=== PATIENT | male | born 1965 | race Caucasian/White ===

== ENCOUNTER 2018-08-21 11:44 | Inpatient (IN) | payer SELFPAY ==
--- NOTE | 2018-08-21 13:51 | HP ---
CIWA Score Nausea/Vomitin Muscle Tremors: 3 Anxiety: 3 Agitation: 2 Paroxysmal Sweats: 2 Orientation: 0-Oriented Tacttile Disturbances: 0-None Auditory Disturbances: 0-None Visual Disturbances: 0-None Headache: 0-None Present CIWA-Ar Total Score: 12 - Admission Criteria OASAS Guidelines: Admission for Medically Managed Detox: Requires at least one of the followin. CIWA greater than 12 2. Seizures within the past 24 hours 3. Delirium tremens within the past 24 hours 4. Hallucinations within the past 24 hours 5. Acute intervention needed for co occurring medical disorder 6. Acute intervention needed for co occurring psychiatric disorder 7. Severe withdrawal that cannot be handled at a lower level of care (continued vomiting, continued diarrhea, abnormal vital signs) requiring intravenous medication and/or fluids 8. Patient presents the following: CIWA greater than 12 Admission Criteria Met: Admission criteria met Admission ROS [facility] Chief Complaint: alcohol detox 53 yo with HTN, DM, high cholesterol, BPH here for the first time. Says he was in the [facility] for alcohol detox. Says after discharge restarted drinking. Has a PCP at [facility] in the [place]. alcohol- drinks- lot of whiskey, no seizures, no DT history denies other drug use. DUR- no recent meds Allergies/Adverse Reactions: Allergies Allergy/AdvReac Type Severity Reaction Status Date / Time No Known Drug Allergies Allergy Verified 07/01/15 21:48 - Ebola screening Have you traveled outside of the country in the last 21 days: No Have you had contact with anyone from an Ebola affected area: No Do you have a fever: No Patient History - Patient Medical History Hx Hypertension: Yes Hx Hypercholesterolemia: Yes Hx Diabetes: Yes Hx Gastrointestinal Disorders: Yes (DIVERTICULITIS) - Patient Surgical History Past Surgical History: Yes Hx Abdominal Surgery: Yes (colostomy, reversed) Hx Orthopedic Surgery: Yes (SUSANNE HIP REPLACEMENT 8 YRS AGO) Anesthesia Reaction: No - PPD History Previous Implant?: Yes PPD to be Administered?: Yes - Smoking Cessation Smoking history: Never smoked Have you smoked in the past 12 months: No Aproximately how many cigarettes per day: 0 Hx Chewing Tobacco Use: No Initiated information on smoking cessation: No - Substance & Tx. History Hx Alcohol Use: Yes Hx Substance Use: Yes Substance Use Type: Alcohol Hx Substance Use Treatment: Yes - Substances abused Alcohol Substance route: Oral Frequency: Daily Amount used: 1 liter Age of first use: 19 Date of last use: 08/21/18 Family Disease History - Family Disease History Family Disease History: Other: Father (used alcohol) Admission Physical Exam BHS - Physical General Appearance: Yes: Within Normal Limits, Anxious HEENTM: Yes: Within Normal Limits Respiratory: Yes: Within Normal Limits, Lungs Clear Neck: Yes: Within Normal Limits, No masses,lesions,Nodules Cardiology: Yes: Within Normal Limits, Regular Rhythm, Regular Rate Abdominal: Yes: Normal Bowel Sounds, Non Tender, Flat, Organomegaly Back: Yes: Within Normal Limits, Normal Inspection Musculoskeletal: Yes: Within Normal Limits Extremities: Yes: Within Normal Limits Neurological: Yes: Within Normal Limits, Fully Oriented, Alert Integumentary: Yes: Within Normal Limits - Diagnostic (1) Alcohol use disorder Current Visit: Yes Status: Acute (2) High cholesterol Current Visit: Yes Status: Acute (3) BPH (benign prostatic hyperplasia) Current Visit: Yes Status: Acute (4) Diabetes mellitus Current Visit: No Status: Acute (5) Hypertension Current Visit: No Status: Acute Breathalyzer - Breathalyzer Breathalyzer: 0.100 Urine Drug Screen - Test Device Lot number: [id number] Expiration date: 04/26/20 - Control Is test valid?: Yes - Results Drug screen NEGATIVE: No Inpatient Rehab Admission - Rehab Decision to Admit Inpatient rehab admission?: No
[2018-08-21] MEDS ORDERED: MENTHOL/PHENOL 1 EACH UD MM PRN (13:59)
[2018-08-21] MEDS ORDERED: chlordiazePOXIDE HCL 25 MG CAPSULE PO PRN (13:59)
[2018-08-21] MEDS ORDERED: IBUPROFEN 400 MG TABLET (FP) PO PRN (13:59)
[2018-08-21] MEDS ORDERED: METHOCARBAMOL 500 MG TABLET PO PRN (13:59)
[2018-08-21] MEDS ORDERED: BISMUTH SUBSALICYLATE 262 MG/15 ML BTL PO PRN (13:59)
[2018-08-21] MEDS ORDERED: MAG HYDROX/AL HYDROX/SIMETH 30 ML UNIT-DOSE CUP PO PRN (13:59)
[2018-08-21] MEDS ORDERED: ACETAMINOPHEN 325 MG TABLET (FP) PO PRN ×2 (13:59)
[2018-08-21] MEDS ORDERED: MAGNESIUM HYDROX 2400MG/30ML ORAL SUSPENSION 30 ML CUP PO PRN (13:59)
[2018-08-21] MEDS ORDERED: MAGNESIUM CITRATE 300 ML BOTTLE PO PRN (13:59)
[2018-08-21 14:25] VITALS: BMI 27.1
[2018-08-21] MEDS ORDERED: TRIMETHOBENZAMIDE HCL 200MG/2ML INJ IM PRN (14:37)
[2018-08-21] MEDS ORDERED: ONDANSETRON *ODT* 4 MG TABLET SL PRN (14:37)
[2018-08-21] MEDS ORDERED: chlordiazePOXIDE HCL 25 MG CAPSULE PO ONE (14:50)
--- NOTE | 2018-08-21 14:50 | EKG ---
Test Reason : Blood Pressure : / mmHG Vent. Rate : 103 BPM Atrial Rate : 103 BPM P-R Int : 156 ms QRS Dur : 090 ms QT Int : 358 ms P-R-T Axes : 008 003 026 degrees QTc Int : 468 ms SINUS TACHYCARDIA CANNOT RULE OUT INFERIOR INFARCT , AGE UNDETERMINED ABNORMAL ECG WHEN COMPARED WITH ECG OF 01-JUL-2015 21:59, NO SIGNIFICANT CHANGE WAS FOUND Confirmed by Oral Buckner MD ([id number]) on 08/21/2018 2:50:14 PM Referred By: Confirmed By:Oral Buckner MD
[2018-08-21] MEDS: TAMSULOSIN HCL 0.4 MG CAP PO SCH (15:18)
[2018-08-21] MEDS: LOSARTAN POTASSIUM 50 MG TABLET (FP) PO SCH (15:18)
[2018-08-21 17:13] LABS: ALBUMIN 3.9 g/dl (3.4-5.0); BILIRUBIN,TOTAL 0.3 mg/dL (0.2-1); BLOOD UREA NITROGEN 14.9 mg/dL (7-18); CALCIUM 8.5 mg/dL (8.5-10.1); CREATININE 0.9 mg/dL (0.55-1.3); HEMATOCRIT 35.7 % (35.4-49); HEMOGLOBIN 11.7 GM/dL (11.7-16.9); MCH 30.2 pg (25.7-33.7); MCHC 32.9 g/dl (32.0-35.9); MEAN CELL VOLUME 91.9 fl (80-96); MEAN PLT VOLUME 9.1 fl (7.5-11.1); PLATELET COUNT 219 K/MM3 (134-434); POTASSIUM 4.2 mmol/L (3.5-5.1); RBC 3.88 M/mm3 (4.00-5.60); RDW 13.4 % (11.9-15.9); TOT PROT 7.3 g/dl (6.4-8.2); WHITE BLOOD COUNT 4.7 K/mm3 (4.0-10.0)
[2018-08-21] MEDS: chlordiazePOXIDE HCL 25 MG CAPSULE PO SCH ×2 (17:16→22:35)
[2018-08-21] MEDS: ATENOLOL 25 MG TABLET (FP) PO SCH (17:20)
[2018-08-21] MEDS: sitaGLIPtin PHOSPHATE 50 MG TABLET PO SCH (17:25)
[2018-08-21] MEDS: metFORMIN HCL 500 MG TABLET (FP) PO SCH (17:25)
[2018-08-21 18:40] LABS: URINE APPEARANCE CLEAR; URINE BILIRUBIN NEGATIVE (NEGATIVE); URINE COLOR YELLOW; URINE GLUCOSE (UA) 2+ (NEGATIVE); URINE KETONE TRACE (NEGATIVE); URINE LEUK ESTERASE NEGATIVE (NEGATIVE); URINE NITRITE NEGATIVE (NEGATIVE); URINE PROTEIN NEGATIVE (NEGATIVE); URINE UROBILINOGEN 0.2 mg/dL (0.2-1.0)
[2018-08-21] MEDS ORDERED: PATIENT'S OWN MEDICATION (NON-FORMULARY) (Sitagliptin Phos/Metformin Hcl [Janumet 50-1,000 PO SCH (22:00)
[2018-08-21] MEDS: THIAMINE HCL 100 MG TABLET (FP) PO SCH (22:35)
[2018-08-21] MEDS: MELATONIN 5 MG TABLETS PO PRN (22:36)
[2018-08-22] MEDS: sitaGLIPtin PHOSPHATE 50 MG TABLET PO SCH ×2 (06:25→17:26)
[2018-08-22] MEDS: metFORMIN HCL 500 MG TABLET (FP) PO SCH ×2 (06:25→17:26)
[2018-08-22] MEDS: chlordiazePOXIDE HCL 25 MG CAPSULE PO SCH ×4 (06:26→22:38)
[2018-08-22] MEDS: LOSARTAN POTASSIUM 50 MG TABLET (FP) PO SCH (10:09)
[2018-08-22] MEDS: ATENOLOL 25 MG TABLET (FP) PO SCH (10:09)
[2018-08-22] MEDS: ASPIRIN 81 MG CHEWABLE TABLETS PO SCH (10:09)
[2018-08-22] MEDS: TAMSULOSIN HCL 0.4 MG CAP PO SCH (10:09)
[2018-08-22] MEDS: PRENATAL VITAMINS W/ FOLIC ACID TABLET (FP) PO SCH (10:09)
--- NOTE | 2018-08-22 14:50 | PN ---
S CIWA - CIWA Score Nausea/Vomitin-Mild Nausea/No Vomiting Muscle Tremors: 1-None Visible, but [place] Anxiety: 1-Mildly Anxious Agitation: 1-Slight > Activity Paroxysmal Sweats: No Perspiration Orientation: 0-Oriented Tacttile Disturbances: 0-None Auditory Disturbances: 0-None Visual Disturbances: 0-None Headache: 1-Very Mild CIWA-Ar Total Score: 5 BHS Progress Note (SOAP) Subjective: pt without complaints O: Vital Signs - 24 hr 08/21/18 08/21/18 08/22/18 16:41 20:44 00:30 Temperature 97.2 F L 97.5 F L Pulse Rate 106 H 98 H Respiratory 18 18 18 Rate Blood Pressure 128/84 131/78 08/22/18 08/22/18 08/22/18 03:30 07:04 10:00 Temperature 97 F L 98.8 F Pulse Rate 90 100 H Respiratory 18 18 16 Rate Blood Pressure 135/79 133/82 08/22/18 14:05 Temperature 98.1 F Pulse Rate 93 H Respiratory 17 Rate Blood Pressure 114/73 Laboratory Tests 08/21/18 08/21/18 08/21/18 13:21 14:05 14:05 WBC 4.7 RBC 3.88 L Hgb 11.7 Hct 35.7 MCV 91.9 MCH 30.2 MCHC 32.9 RDW 13.4 D Plt Count 219 MPV 9.1 Sodium 134 L Potassium 4.2 Chloride 93 L Carbon Dioxide 26 Anion Gap 14 BUN 14.9 Creatinine 0.9 Est GFR (CKD-EPI)AfAm 111.83 Est GFR (CKD-EPI)NonAf 96.49 POC Glucometer 108 Random Glucose 135 H Calcium 8.5 Total Bilirubin 0.3 AST 80 H ALT 89 H Alkaline Phosphatase 71 Total Protein 7.3 Albumin 3.9 Urine Color Urine Appearance Urine pH Ur Specific [place] Urine Protein Urine Glucose (UA) Urine Ketones Urine Blood Urine Nitrite Urine Bilirubin Urine Urobilinogen Ur Leukocyte Esterase RPR Titer 08/21/18 08/21/18 08/22/18 14:05 14:05 06:25 WBC RBC Hgb Hct MCV MCH MCHC RDW Plt Count MPV Sodium Potassium Chloride Carbon Dioxide Anion Gap BUN Creatinine Est GFR (CKD-EPI)AfAm Est GFR (CKD-EPI)NonAf POC Glucometer 179 Random Glucose Calcium Total Bilirubin AST ALT Alkaline Phosphatase Total Protein Albumin Urine Color Yellow Urine Appearance Clear Urine pH 5.0 Ur Specific [place] 1.017 Urine Protein Negative Urine Glucose (UA) 2+ H Urine Ketones Trace H Urine Blood Negative Urine Nitrite Negative Urine Bilirubin Negative Urine Urobilinogen 0.2 Ur Leukocyte Esterase Negative RPR Titer Nonreactive mild increase in liver enzymes a/p: AUD- continue alcohol detox protocol, pt doing well
[2018-08-22] MEDS: MELATONIN 5 MG TABLETS PO PRN (22:38)
[2018-08-22] MEDS: THIAMINE HCL 100 MG TABLET (FP) PO SCH (22:38)
[2018-08-23] MEDS: chlordiazePOXIDE HCL 25 MG CAPSULE PO SCH ×2 (05:36→11:06)
[2018-08-23] MEDS: sitaGLIPtin PHOSPHATE 50 MG TABLET PO SCH ×2 (06:11→17:41)
[2018-08-23] MEDS: metFORMIN HCL 500 MG TABLET (FP) PO SCH ×2 (06:11→17:41)
--- NOTE | 2018-08-23 11:03 | PN ---
S CIWA - CIWA Score Nausea/Vomitin Muscle Tremors: 2 Anxiety: 2 Agitation: 2 Paroxysmal Sweats: 1-Minimal Palms Moist Orientation: 0-Oriented Tacttile Disturbances: 1-Very Mild Itch/Numbness Auditory Disturbances: 1-Very Mild Visual Disturbances: 0-None Headache: 2-Mild CIWA-Ar Total Score: 13 BHS Progress Note (SOAP) Subjective: alert,irritable,anxious,interrupted sleep,tremor Objective: 08/23/18 11:02 Vital Signs Temperature 98.2 F 08/23/18 09:16 Pulse Rate 111 H 08/23/18 09:16 Respiratory Rate 18 08/23/18 09:16 Blood Pressure 124/91 08/23/18 09:16 O2 Sat by Pulse Oximetry (%) 08/23/18 11:02 Laboratory Last Values WBC 4.7 K/mm3 (4.0-10.0) 08/21/18 14:05 RBC 3.88 M/mm3 (4.00-5.60) L 08/21/18 14:05 Hgb 11.7 GM/dL (11.7-16.9) 08/21/18 14:05 Hct 35.7 % (35.4-49) 08/21/18 14:05 MCV 91.9 fl (80-96) 08/21/18 14:05 MCH 30.2 pg (25.7-33.7) 08/21/18 14:05 MCHC 32.9 g/dl (32.0-35.9) 08/21/18 14:05 RDW 13.4 % (11.9-15.9) D 08/21/18 14:05 Plt Count 219 K/MM3 (134-434) 08/21/18 14:05 MPV 9.1 fl (7.5-11.1) 08/21/18 14:05 Sodium 134 mmol/L (136-145) L 08/21/18 14:05 Potassium 4.2 mmol/L (3.5-5.1) 08/21/18 14:05 Chloride 93 mmol/L (98-107) L 08/21/18 14:05 Carbon Dioxide 26 mmol/L (21-32) 08/21/18 14:05 Anion Gap 14 MMOL/L (8-16) 08/21/18 14:05 BUN 14.9 mg/dL (7-18) 08/21/18 14:05 Creatinine 0.9 mg/dL (0.55-1.3) 08/21/18 14:05 Est GFR (CKD-EPI)AfAm 111.83 08/21/18 14:05 Est GFR (CKD-EPI)NonAf 96.49 08/21/18 14:05 POC Glucometer 161 UNITS (80-120) 08/23/18 05:36 Random Glucose 135 mg/dL (74-106) H 08/21/18 14:05 Calcium 8.5 mg/dL (8.5-10.1) 08/21/18 14:05 Total Bilirubin 0.3 mg/dL (0.2-1) 08/21/18 14:05 AST 80 U/L (15-37) H 08/21/18 14:05 ALT 89 U/L (13-61) H 08/21/18 14:05 Alkaline Phosphatase 71 U/L (45-117) 08/21/18 14:05 Total Protein 7.3 g/dl (6.4-8.2) 08/21/18 14:05 Albumin 3.9 g/dl (3.4-5.0) 08/21/18 14:05 Urine Color Yellow 08/21/18 14:05 Urine Appearance Clear 08/21/18 14:05 Urine pH 5.0 (5.0-8.0) 08/21/18 14:05 Ur Specific [place] 1.017 (1.010-1.035) 08/21/18 14:05 Urine Protein Negative (NEGATIVE) 08/21/18 14:05 Urine Glucose (UA) 2+ (NEGATIVE) H 08/21/18 14:05 Urine Ketones Trace (NEGATIVE) H 08/21/18 14:05 Urine Blood Negative (NEGATIVE) 08/21/18 14:05 Urine Nitrite Negative (NEGATIVE) 08/21/18 14:05 Urine Bilirubin Negative (NEGATIVE) 08/21/18 14:05 Urine Urobilinogen 0.2 mg/dL (0.2-1.0) 08/21/18 14:05 Ur Leukocyte Esterase Negative (NEGATIVE) 08/21/18 14:05 RPR Titer Nonreactive (NONREACTIVE) 08/21/18 14:05 Assessment: 08/23/18 11:03 withdrawal symptom Plan: continue detox,bgm monitoring
[2018-08-23] MEDS: PRENATAL VITAMINS W/ FOLIC ACID TABLET (FP) PO SCH (11:06)
[2018-08-23] MEDS: ASPIRIN 81 MG CHEWABLE TABLETS PO SCH (11:06)
[2018-08-23] MEDS: LOSARTAN POTASSIUM 50 MG TABLET (FP) PO SCH (11:06)
[2018-08-23] MEDS: ATENOLOL 25 MG TABLET (FP) PO SCH (11:06)
[2018-08-23] MEDS: TAMSULOSIN HCL 0.4 MG CAP PO SCH (11:06)
[2018-08-23] MEDS ORDERED: chlordiazePOXIDE HCL 10 MG CAPSULE PO PRN (17:00)
[2018-08-23] MEDS: chlordiazePOXIDE HCL 10 MG CAPSULE PO SCH ×2 (17:41→22:18)
[2018-08-23] MEDS: hydrOXYzine PAMOATE 25 MG CAPSULE (FP) PO PRN (22:17)
[2018-08-23] MEDS: THIAMINE HCL 100 MG TABLET (FP) PO SCH (22:18)
--- NOTE | 2018-08-23 22:41 | PN ---
S Progress Note Note: PATIENT HAS POSITIVE PPD. Vital Signs Temperature 98.2 F 08/23/18 21:25 Pulse Rate 106 H 08/23/18 21:25 Respiratory Rate 18 08/23/18 21:25 Blood Pressure 133/87 08/23/18 21:25 O2 Sat by Pulse Oximetry (%) ACTION: Chest x-ray ordered
[2018-08-24] MEDS: metFORMIN HCL 500 MG TABLET (FP) PO SCH ×2 (06:26→16:58)
[2018-08-24] MEDS: chlordiazePOXIDE HCL 10 MG CAPSULE PO SCH ×3 (06:27→17:02)
--- NOTE | 2018-08-24 09:34 | PN ---
[facility] CIWA - CIWA Score Nausea/Vomitin-No Nausea/No Vomiting Muscle Tremors: 1-None Visible, but [place] Anxiety: 1-Mildly Anxious Agitation: 0-Normal Activity Paroxysmal Sweats: 1-Minimal Palms Moist Orientation: 0-Oriented Tacttile Disturbances: 1-Very Mild Itch/Numbness Auditory Disturbances: 0-None Visual Disturbances: 0-None Headache: 0-None Present CIWA-Ar Total Score: 4 S Progress Note (SOAP) Subjective: c/o of interrupted sleep, chills, sweats Objective: 08/24/18 11:48 Vital Signs Temperature 97.9 F 08/24/18 09:15 Pulse Rate 101 H 08/24/18 09:15 Respiratory Rate 18 08/24/18 09:15 Blood Pressure 130/96 08/24/18 09:15 O2 Sat by Pulse Oximetry (%) Laboratory Last Values WBC 4.7 K/mm3 (4.0-10.0) 08/21/18 14:05 RBC 3.88 M/mm3 (4.00-5.60) L 08/21/18 14:05 Hgb 11.7 GM/dL (11.7-16.9) 08/21/18 14:05 Hct 35.7 % (35.4-49) 08/21/18 14:05 MCV 91.9 fl (80-96) 08/21/18 14:05 MCH 30.2 pg (25.7-33.7) 08/21/18 14:05 MCHC 32.9 g/dl (32.0-35.9) 08/21/18 14:05 RDW 13.4 % (11.9-15.9) D 08/21/18 14:05 Plt Count 219 K/MM3 (134-434) 08/21/18 14:05 MPV 9.1 fl (7.5-11.1) 08/21/18 14:05 Sodium 134 mmol/L (136-145) L 08/21/18 14:05 Potassium 4.2 mmol/L (3.5-5.1) 08/21/18 14:05 Chloride 93 mmol/L (98-107) L 08/21/18 14:05 Carbon Dioxide 26 mmol/L (21-32) 08/21/18 14:05 Anion Gap 14 MMOL/L (8-16) 08/21/18 14:05 BUN 14.9 mg/dL (7-18) 08/21/18 14:05 Creatinine 0.9 mg/dL (0.55-1.3) 08/21/18 14:05 Est GFR (CKD-EPI)AfAm 111.83 08/21/18 14:05 Est GFR (CKD-EPI)NonAf 96.49 08/21/18 14:05 POC Glucometer 226 UNITS (80-120) 08/24/18 06: Random Glucose 135 mg/dL (74-106) H 08/21/18 14:05 Calcium 8.5 mg/dL (8.5-10.1) 08/21/18 14:05 Total Bilirubin 0.3 mg/dL (0.2-1) 08/21/18 14:05 AST 80 U/L (15-37) H 08/21/18 14:05 ALT 89 U/L (13-61) H 08/21/18 14:05 Alkaline Phosphatase 71 U/L (45-117) 08/21/18 14:05 Total Protein 7.3 g/dl (6.4-8.2) 08/21/18 14:05 Albumin 3.9 g/dl (3.4-5.0) 08/21/18 14:05 Urine Color Yellow 08/21/18 14:05 Urine Appearance Clear 08/21/18 14:05 Urine pH 5.0 (5.0-8.0) 08/21/18 14:05 Ur Specific [place] 1.017 (1.010-1.035) 08/21/18 14:05 Urine Protein Negative (NEGATIVE) 08/21/18 14:05 Urine Glucose (UA) 2+ (NEGATIVE) H 08/21/18 14:05 Urine Ketones Trace (NEGATIVE) H 08/21/18 14:05 Urine Blood Negative (NEGATIVE) 08/21/18 14:05 Urine Nitrite Negative (NEGATIVE) 08/21/18 14:05 Urine Bilirubin Negative (NEGATIVE) 08/21/18 14:05 Urine Urobilinogen 0.2 mg/dL (0.2-1.0) 08/21/18 14:05 Ur Leukocyte Esterase Negative (NEGATIVE) 08/21/18 14:05 RPR Titer Nonreactive (NONREACTIVE) 08/21/18 14:05 labs reviewed Assessment: 08/24/18 11:52 Patient Aox3 no acute distress, ambulating in the unit withdrawal sx Plan: increase PO fluids continue detox continue to monitor
[2018-08-24] MEDS: PRENATAL VITAMINS W/ FOLIC ACID TABLET (FP) PO SCH (10:34)
[2018-08-24] MEDS: LOSARTAN POTASSIUM 50 MG TABLET (FP) PO SCH (10:34)
[2018-08-24] MEDS: TAMSULOSIN HCL 0.4 MG CAP PO SCH (10:34)
[2018-08-24] MEDS: ASPIRIN 81 MG CHEWABLE TABLETS PO SCH (10:35)
[2018-08-24] MEDS: ATENOLOL 25 MG TABLET (FP) PO SCH (10:35)
[2018-08-24] MEDS: sitaGLIPtin PHOSPHATE 50 MG TABLET PO SCH (17:02)
[2018-08-24] MEDS: THIAMINE HCL 100 MG TABLET (FP) PO SCH (22:15)
[2018-08-24] MEDS: MELATONIN 5 MG TABLETS PO PRN (22:15)
[2018-08-24] MEDS: hydrOXYzine PAMOATE 25 MG CAPSULE (FP) PO PRN (22:15)
[2018-08-25] MEDS: sitaGLIPtin PHOSPHATE 50 MG TABLET PO SCH ×2 (02:28→06:10)
[2018-08-25] MEDS: chlordiazePOXIDE HCL 10 MG CAPSULE PO SCH (06:08)
[2018-08-25] MEDS: metFORMIN HCL 500 MG TABLET (FP) PO SCH (06:08)
[2018-08-25 06:52] VITALS: BP 140/80; PULSE 77; TEMP 97.9
[2018-08-25] MEDS: ASPIRIN 81 MG CHEWABLE TABLETS PO SCH (09:44)
[2018-08-25] MEDS: PRENATAL VITAMINS W/ FOLIC ACID TABLET (FP) PO SCH (09:44)
[2018-08-25] MEDS: ATENOLOL 25 MG TABLET (FP) PO SCH (09:45)
[2018-08-25] MEDS: LOSARTAN POTASSIUM 50 MG TABLET (FP) PO SCH (09:45)
[2018-08-25] MEDS: TAMSULOSIN HCL 0.4 MG CAP PO SCH (09:45)
--- NOTE | 2018-08-25 12:46 | DS ---
[facility] Detox Discharge Summary Admission Date: 08/21/18 Discharge Date: 08/25/18 - History Present History: Alcohol Dependence Additional Comments: Pt is medically cleared and is discharged today. Pt has completed his detox protocol. 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 Pt is encouraged to follow-up with outpatient CD program and also to follow-up with his PMD. Pt is AOX3 and in no respiratory distress. Pertinent Past History: H/O HTN, dyslipidemia, DM, BPH,and alcohol use disorder. - Physical Exam Results Vital Signs: Vital Signs Temperature 97.9 F 08/25/18 06:00 Pulse Rate 77 08/25/18 06:00 Respiratory Rate 18 08/25/18 06:00 Blood Pressure 140/80 08/25/18 06:00 O2 Sat by Pulse Oximetry (%) Vital Signs 08/25/18 06:00 Temperature 97.9 F Pulse Rate 77 Respiratory 18 Rate Blood Pressure 140/80 Lab Results WBC 4.7 K/mm3 (4.0-10.0) 08/21/18 14:05 RBC 3.88 M/mm3 (4.00-5.60) L 08/21/18 14:05 Hgb 11.7 GM/dL (11.7-16.9) 08/21/18 14:05 Hct 35.7 % (35.4-49) 08/21/18 14:05 MCV 91.9 fl (80-96) 08/21/18 14:05 MCHC 32.9 g/dl (32.0-35.9) 08/21/18 14:05 RDW 13.4 % (11.9-15.9) D 08/21/18 14:05 Plt Count 219 K/MM3 (134-434) 08/21/18 14:05 Sodium 134 mmol/L (136-145) L 08/21/18 14:05 Potassium 4.2 mmol/L (3.5-5.1) 08/21/18 14:05 Chloride 93 mmol/L (98-107) L 08/21/18 14:05 Carbon Dioxide 26 mmol/L (21-32) 08/21/18 14:05 Anion Gap 14 MMOL/L (8-16) 08/21/18 14:05 BUN 14.9 mg/dL (7-18) 08/21/18 14:05 Creatinine 0.9 mg/dL (0.55-1.3) 08/21/18 14:05 Random Glucose 135 mg/dL (74-106) H 08/21/18 14:05 Calcium 8.5 mg/dL (8.5-10.1) 08/21/18 14:05 Labs noted. Pertinent Admission Physical Exam Findings: withdrawal symptoms. - Treatment Hospital Course: Detox Protocol Followed, Detoxed Safely, Responded well, Discharged Condition Good - Medication Discharge Medications: Ambulatory Orders Losartan Potassium [Cozaar] 50 mg PO DAILY 12/20/13 Sitagliptin Phos/Metformin HCl [Janumet 50-1,000 mg Tablet] 1 tab PO BID Aspirin [ASA -] 81 mg PO DAILY 05/08/15 Atenolol [Tenormin -] 25 mg PO DAILY 05/11/15 Tamsulosin HCl [Flomax] 0.4 mg PO DAILY 08/21/18 - Diagnosis (1) Alcohol use disorder Status: Acute (2) BPH (benign prostatic hyperplasia) Status: Chronic (3) Diabetes mellitus Status: Chronic Qualifiers: Diabetes mellitus type: type 2 (4) High cholesterol Status: Chronic (5) Hypertension Status: Chronic - AMA Did Patient Leave Against Medical Advice: No
== END 2018-08-25 09:50 | disposition home or self-care (01) | DRG 775 ==
LOC: YASAS 11:44 → Y6N 14:25
PROVIDERS: ADMIT Surgery; ATTEND Surgery
PROC: HZ2ZZZZ Detoxification Services for Substance Abuse Treatment (ICD-10-PCS; principal; 2018-08-21)
DX: F10.230 Alcohol dependence with withdrawal, uncomplicated (principal); I10 Essential (primary) hypertension; E11.9 Type 2 diabetes mellitus without complications; E78.5 Hyperlipidemia, unspecified; N40.0 Benign prostatic hyperplasia without lower urinary tract symptoms; R76.11 Nonspecific reaction to tuberculin skin test without active tuberculosis; R94.5 Abnormal results of liver function studies
CPT/HCPCS: 36415; 71046-TC-FY; 80053; 81003; 82962; 85027; 86593; 93005; 93010; Q0162

== ENCOUNTER 2020-02-13 22:40 | Emergency (ER) | payer OTHER ==
[2020-02-13 22:58] VITALS: BMI 31.6
[2020-02-13] MEDS ORDERED: LACTATED RINGERS SOLUTION 1000 ML INFUS.BAG IV ONE (23:19)
[2020-02-13 23:42] LABS: BASO % 0.3 % (0-2.0); EOS % 2.1 % (0-4.5); HEMATOCRIT 32.9 % (35.4-49); HEMOGLOBIN 10.9 GM/dL (11.7-16.9); MCH 29.8 pg (25.7-33.7); MEAN CELL VOLUME 90.1 fl (80-96); MEAN PLT VOLUME 9.3 fl (7.5-11.1); NEUT % 72.6 % (42.8-82.8); PLATELET COUNT 277 K/MM3 (134-434); RBC 3.65 M/mm3 (4.00-5.60); RDW 12.7 % (11.9-15.9); WHITE BLOOD COUNT 10.1 K/mm3 (4.0-10.0)
[2020-02-13 23:48] LABS: INR 1.08 (0.83-1.09); PROTHROMBIN TIME (PATIENT) 13.2 SEC (9.7-13.0)
[2020-02-13 23:59] LABS: POTASSIUM 4.5 mmol/L (3.5-5.1)
[2020-02-14 00:01] LABS: CALCIUM 9.2 mg/dL (8.5-10.1)
[2020-02-14 00:02] LABS: ALBUMIN 3.7 g/dl (3.4-5.0)
[2020-02-14 00:05] LABS: CREATININE 0.9 mg/dL (0.55-1.3)
[2020-02-14 00:06] LABS: BILIRUBIN,TOTAL 0.3 mg/dL (0.2-1)
[2020-02-14] MEDS ORDERED: LACTATED RINGERS SOLUTION 1000 ML INFUS.BAG IV ONE (03:45)
[2020-02-14 06:19] VITALS: BP 154/87; PULSE 94; TEMP 98.4
[2020-02-14] MEDS ORDERED: AMOX TR/POT CLAV 875MG/125MG TABLETS (FP) PO ONE (06:25)
[2020-02-14] MEDS ORDERED: AMOX TR/POT CLAV 875MG/125MG TABLETS (FP) ONE (06:32)
== END 2020-02-14 07:09 | disposition home or self-care (01) ==
LOC: JER 22:40
DX: K57.92 Diverticulitis of intestine, part unspecified, without perforation or abscess without bleeding (principal)
CPT/HCPCS: 36415; 74174-TC; 80053; 82272; 83605; 85025; 85610; 86850; 86900; 86901; 93005; 93010; 99285-25

== ENCOUNTER 2020-06-21 08:23 | Inpatient (IN) | payer SELFPAY ==
[2020-06-21] MEDS ORDERED: ONDANSETRON *ODT* 4 MG TABLET SL PRN (13:55)
[2020-06-21] MEDS ORDERED: NICOTINE POLACRILEX 2 MG GUM BUC PRN (13:55)
[2020-06-21] MEDS ORDERED: MENTHOL/PHENOL 1 EACH UD MM PRN (13:55)
[2020-06-21] MEDS ORDERED: METHOCARBAMOL 500 MG TABLET PO PRN (13:55)
[2020-06-21] MEDS ORDERED: IBUPROFEN 400 MG TABLET (FP) PO PRN (13:55)
[2020-06-21] MEDS ORDERED: BISMUTH SUBSALICYLATE 524 MG/30 ML UD PO PRN (13:55)
[2020-06-21] MEDS ORDERED: chlordiazePOXIDE HCL 25 MG CAPSULE PO PRN (13:55)
[2020-06-21] MEDS ORDERED: MAG HYDROX/AL HYDROX/SIMETH 30 ML UNIT-DOSE CUP PO PRN (13:55)
[2020-06-21] MEDS ORDERED: ACETAMINOPHEN 325 MG TABLET (FP) PO PRN ×2 (13:55)
[2020-06-21] MEDS ORDERED: MAGNESIUM HYDROX 2400MG/30ML ORAL SUSPENSION 30 ML CUP PO PRN (13:55)
[2020-06-21] MEDS ORDERED: MAGNESIUM CITRATE 300 ML BOTTLE PO PRN (13:55)
[2020-06-21 14:25] VITALS: BMI 29.5
[2020-06-21] MEDS: hydrOXYzine PAMOATE 25 MG CAPSULE (FP) PO SCH ×3 (15:53→22:28)
[2020-06-21] MEDS: metFORMIN HCL 500 MG TABLET (FP) PO SCH (17:35)
[2020-06-21] MEDS: chlordiazePOXIDE HCL 25 MG CAPSULE PO SCH ×2 (17:36→22:28)
[2020-06-21] MEDS: MELATONIN 5 MG TABLETS PO SCH (22:28)
[2020-06-21] MEDS: ATORVASTATIN CA 40 MG TABLET (FP) PO SCH (22:28)
[2020-06-21] MEDS: THIAMINE HCL 100 MG TABLET (FP) PO SCH (22:28)
[2020-06-22] MEDS: chlordiazePOXIDE HCL 25 MG CAPSULE PO SCH ×4 (05:59→22:26)
[2020-06-22] MEDS: metFORMIN HCL 500 MG TABLET (FP) PO SCH ×2 (05:59→17:49)
[2020-06-22] MEDS: hydrOXYzine PAMOATE 25 MG CAPSULE (FP) PO SCH ×5 (06:00→23:41)
[2020-06-22] MEDS: ASPIRIN 81 MG CHEWABLE TABLETS PO SCH (10:25)
[2020-06-22] MEDS: LOSARTAN POTASSIUM 50 MG TABLET PO SCH (10:25)
[2020-06-22] MEDS: TAMSULOSIN HCL 0.4 MG CAP PO SCH (10:26)
[2020-06-22] MEDS: PRENATAL VITAMINS W/ FOLIC ACID TABLET (FP) PO SCH (10:28)
[2020-06-22] MEDS: ATENOLOL 25 MG TABLET (FP) PO SCH (10:28)
[2020-06-22 10:39] LABS: ALBUMIN 3.4 g/dl (3.4-5.0); BLOOD UREA NITROGEN 8.5 mg/dL (7-18); CALCIUM 9.7 mg/dL (8.5-10.1)
[2020-06-22 10:43] LABS: CREATININE 0.9 mg/dL (0.55-1.3)
[2020-06-22 10:44] LABS: BILIRUBIN,TOTAL 0.4 mg/dL (0.2-1); TOT PROT 6.9 g/dl (6.4-8.2)
[2020-06-22 10:45] LABS: HEMATOCRIT 33.6 % (35.4-49); HEMOGLOBIN 11.4 GM/dL (11.7-16.9); MCH 30.9 pg (25.7-33.7); MEAN CELL VOLUME 90.8 fl (80-96); MEAN PLT VOLUME 8.5 fl (7.5-11.1); PLATELET COUNT 218 K/MM3 (134-434); RDW 14.8 % (11.9-15.9); WHITE BLOOD COUNT 3.5 K/mm3 (4.0-10.0)
[2020-06-22] MEDS: ATORVASTATIN CA 40 MG TABLET (FP) PO SCH (22:26)
[2020-06-22] MEDS: THIAMINE HCL 100 MG TABLET (FP) PO SCH (22:26)
[2020-06-22] MEDS: MELATONIN 5 MG TABLETS PO SCH (22:27)
[2020-06-23] MEDS: hydrOXYzine PAMOATE 25 MG CAPSULE (FP) PO SCH ×5 (05:18→22:15)
[2020-06-23] MEDS: chlordiazePOXIDE HCL 25 MG CAPSULE PO SCH ×4 (05:18→22:14)
[2020-06-23] MEDS: metFORMIN HCL 500 MG TABLET (FP) PO SCH ×2 (06:36→16:47)
[2020-06-23] MEDS: ASPIRIN 81 MG CHEWABLE TABLETS PO SCH (10:15)
[2020-06-23] MEDS: LOSARTAN POTASSIUM 50 MG TABLET PO SCH (10:15)
[2020-06-23] MEDS: PRENATAL VITAMINS W/ FOLIC ACID TABLET (FP) PO SCH (10:15)
[2020-06-23] MEDS: ATENOLOL 25 MG TABLET (FP) PO SCH (10:15)
[2020-06-23] MEDS: TAMSULOSIN HCL 0.4 MG CAP PO SCH (10:15)
[2020-06-23] MEDS: THIAMINE HCL 100 MG TABLET (FP) PO SCH (22:15)
[2020-06-23] MEDS: ATORVASTATIN CA 40 MG TABLET (FP) PO SCH (22:15)
[2020-06-23] MEDS: MELATONIN 5 MG TABLETS PO SCH (22:15)
[2020-06-24] MEDS ORDERED: chlordiazePOXIDE HCL 10 MG CAPSULE PO PRN
[2020-06-24] MEDS: chlordiazePOXIDE HCL 10 MG CAPSULE PO SCH ×4 (05:20→22:19)
[2020-06-24] MEDS: hydrOXYzine PAMOATE 25 MG CAPSULE (FP) PO SCH ×5 (05:22→22:19)
[2020-06-24 06:11] LABS: SARS-CoV-2 NAA Not Detected (Not Detected)
[2020-06-24] MEDS: metFORMIN HCL 500 MG TABLET (FP) PO SCH ×2 (06:40→16:51)
[2020-06-24] MEDS: TAMSULOSIN HCL 0.4 MG CAP PO SCH (10:31)
[2020-06-24] MEDS: ATENOLOL 25 MG TABLET (FP) PO SCH (10:31)
[2020-06-24] MEDS: LOSARTAN POTASSIUM 50 MG TABLET PO SCH (10:31)
[2020-06-24] MEDS: PRENATAL VITAMINS W/ FOLIC ACID TABLET (FP) PO SCH (10:31)
[2020-06-24] MEDS: ASPIRIN 81 MG CHEWABLE TABLETS PO SCH (10:31)
[2020-06-24] MEDS: THIAMINE HCL 100 MG TABLET (FP) PO SCH (22:18)
[2020-06-24] MEDS: ATORVASTATIN CA 40 MG TABLET (FP) PO SCH (22:18)
[2020-06-24] MEDS: MELATONIN 5 MG TABLETS PO SCH (22:20)
[2020-06-24] MEDS: SODIUM CHLORIDE NASAL SPRAY 44 ML BOTTLE NS PRN (22:42)
[2020-06-25] MEDS: chlordiazePOXIDE HCL 10 MG CAPSULE PO SCH ×2 (05:34→17:41)
[2020-06-25] MEDS: hydrOXYzine PAMOATE 25 MG CAPSULE (FP) PO SCH ×5 (05:35→21:49)
[2020-06-25] MEDS: metFORMIN HCL 500 MG TABLET (FP) PO SCH ×2 (07:09→17:40)
[2020-06-25] MEDS: TAMSULOSIN HCL 0.4 MG CAP PO SCH (07:52)
[2020-06-25] MEDS: SODIUM CHLORIDE NASAL SPRAY 44 ML BOTTLE NS PRN (07:54)
[2020-06-25] MEDS: ASPIRIN 81 MG CHEWABLE TABLETS PO SCH (10:15)
[2020-06-25] MEDS: PRENATAL VITAMINS W/ FOLIC ACID TABLET (FP) PO SCH (10:15)
[2020-06-25] MEDS: ATENOLOL 25 MG TABLET (FP) PO SCH (10:15)
[2020-06-25] MEDS: LOSARTAN POTASSIUM 50 MG TABLET PO SCH (10:15)
[2020-06-25] MEDS: THIAMINE HCL 100 MG TABLET (FP) PO SCH (21:49)
[2020-06-25] MEDS: MELATONIN 5 MG TABLETS PO SCH (21:49)
[2020-06-25] MEDS: ATORVASTATIN CA 40 MG TABLET (FP) PO SCH (21:49)
[2020-06-26] MEDS ORDERED: chlordiazePOXIDE HCL 10 MG CAPSULE PO ONE (05:00)
[2020-06-26] MEDS: hydrOXYzine PAMOATE 25 MG CAPSULE (FP) PO SCH (05:23)
[2020-06-26] MEDS: metFORMIN HCL 500 MG TABLET (FP) PO SCH (06:10)
[2020-06-26 08:54] VITALS: BP 147/87; PULSE 103; TEMP 98.3
[2020-06-26] MEDS: ASPIRIN 81 MG CHEWABLE TABLETS PO SCH (09:17)
[2020-06-26] MEDS: ATENOLOL 25 MG TABLET (FP) PO SCH (09:17)
[2020-06-26] MEDS: LOSARTAN POTASSIUM 50 MG TABLET PO SCH (09:17)
[2020-06-26] MEDS: TAMSULOSIN HCL 0.4 MG CAP PO SCH (09:18)
[2020-06-26] MEDS: PRENATAL VITAMINS W/ FOLIC ACID TABLET (FP) PO SCH (09:18)
== END 2020-06-26 09:34 | disposition home or self-care (01) | DRG 775 ==
LOC: YASAS 08:23 → Y6N 14:55
PROVIDERS: ADMIT Allergy & Immunology; ATTEND Allergy & Immunology
PROC: HZ2ZZZZ Detoxification Services for Substance Abuse Treatment (ICD-10-PCS; principal; 2020-06-21)
DX: F10.230 Alcohol dependence with withdrawal, uncomplicated (principal); I10 Essential (primary) hypertension; E11.9 Type 2 diabetes mellitus without complications; Z79.84 Long term (current) use of oral hypoglycemic drugs; N40.0 Benign prostatic hyperplasia without lower urinary tract symptoms; Z96.643 Presence of artificial hip joint, bilateral; Z87.19 Personal history of other diseases of the digestive system; Z98.890 Other specified postprocedural states
CPT/HCPCS: 36415; 80053; 82962; 85027; 86780; C9803; U0003; U0005

== ENCOUNTER 2021-10-06 07:25 | Emergency (ER) | payer OTHER ==
[2021-10-06 07:42] VITALS: BMI 30.2
[2021-10-06] MEDS ORDERED: SODIUM CHLORIDE 1,000 ML IV STA (08:20)
[2021-10-06] MEDS ORDERED: FAMOTIDINE 20 MG/50 ML IVPB 20 MG/50 ML MG IVPB ONE ×2 (08:20→08:44)
[2021-10-06] MEDS ORDERED: ACETAMINOPHEN 1000 MG/100 ML BAG IVPB ONE (08:20)
[2021-10-06] MEDS ORDERED: ACETAMINOPHEN INJECTION 100 ML IVPB ONE (08:44)
[2021-10-06 09:48] LABS: BASO % 0.4 % (0-2.0); EOS % 2.5 % (0-4.5); HEMATOCRIT 42.7 % (35.4-49); HEMOGLOBIN 14.3 GM/dL (11.7-16.9); LYMPH % 22.4 % (8-40); MCH 31.1 pg (25.7-33.7); MCHC 33.6 g/dl (32.0-35.9); MEAN CELL VOLUME 92.7 fl (80-96); MONO % 9.3 % (3.8-10.2); NEUT % 65.4 % (42.8-82.8); PLATELET COUNT 202 10^3/uL (134-434); RDW 13.9 % (11.9-15.9)
[2021-10-06 10:10] LABS: ALBUMIN 3.8 g/dl (3.4-5.0); BLOOD UREA NITROGEN 8.3 mg/dL (7-18); CALCIUM 8.8 mg/dL (8.5-10.1); MAGNESIUM 1.8 mg/dL (1.8-2.4)
[2021-10-06 10:12] LABS: CREATININE 1.1 mg/dL (0.55-1.3)
[2021-10-06 10:14] LABS: BILIRUBIN,TOTAL 0.6 mg/dL (0.2-1); TOT PROT 7.4 g/dl (6.4-8.2)
[2021-10-06] MEDS ORDERED: MAGNESIUM SULF 50% (8.12 MEQ/2 ML-1 GM VIAL) IVPB ONE (10:14)
[2021-10-06] MEDS ORDERED: POTASSIUM CHLORIDE TABS 20 MEQ TABLET.ER (FP) PO ONE ×4 (10:14→15:06)
[2021-10-06] MEDS ORDERED: MAGNESIUM 1GM/D5W - 1 GM/100 ML IVPB IVPB ONE (10:23)
[2021-10-06] MEDS: KCL 10 MEQ IVPB 10 MEQ/100 ML INFUS.BAG IVPB SCH ×2 (11:45→12:50)
[2021-10-06] MEDS ORDERED: KCL 10 MEQ IVPB 10 MEQ/100 ML INFUS.BAG IVPB ONE (12:46)
[2021-10-06 15:23] VITALS: BP 155/99; PULSE 81; RESP 16; TEMP 98.7
== END 2021-10-06 15:20 | disposition home or self-care (01) ==
LOC: JER 07:25
PROC: 3E033NZ Introduction of Analgesics, Hypnotics, Sedatives into Peripheral Vein, Percutaneous Approach (ICD-10-PCS; principal; 2021-10-06)
PROC: 3E033NZ Introduction of Analgesics, Hypnotics, Sedatives into Peripheral Vein, Percutaneous Approach (ICD-10-PCS; 2021-10-06)
PROC: 3E0337Z Introduction of Electrolytic and Water Balance Substance into Peripheral Vein, Percutaneous Approach (ICD-10-PCS; 2021-10-06)
PROC: 3E033GC Introduction of Other Therapeutic Substance into Peripheral Vein, Percutaneous Approach (ICD-10-PCS; 2021-10-06)
DX: R07.9 Chest pain, unspecified (principal); E87.6 Hypokalemia
CPT/HCPCS: 36415; 71045-TC-FY; 80053; 83690; 83735; 84484; 85025; 93005; 93010; 99284-25

== ENCOUNTER 2021-11-14 19:19 | Inpatient (IN) | payer OTHER ==
[2021-11-14] MEDS ORDERED: SODIUM CHLORIDE 1,000 ML IV STA (21:04)
[2021-11-14] MEDS ORDERED: MAG HYDROX/AL HYDROX/SIMETH -MYLANTA- ORAL SUSPENSION PO ONE (21:04)
[2021-11-14] MEDS ORDERED: MAG HYDROX/AL HYDROX/SIMETH 30 ML UNIT-DOSE CUP ONE (21:06)
[2021-11-14] MEDS ORDERED: ONDANSETRON 4 MG/2 ML VIAL IVPUSH ONE (21:16)
[2021-11-14] MEDS ORDERED: chlordiazePOXIDE HCL 25 MG CAPSULE PO ONE (21:17)
[2021-11-14] MEDS ORDERED: diazePAM CARPU-JECT 10 MG/2 ML DISP.SYRIN IVPUSH ONE (21:17)
[2021-11-14] MEDS ORDERED: FAMOTIDINE 20 MG/50 ML IVPB 20 MG/50 ML MG IVPB ONE ×2 (21:17→21:24)
[2021-11-14] MEDS ORDERED: diazePAM CARPU-JECT 10 MG/2 ML DISP.SYRIN ONE (21:23)
[2021-11-14] MEDS ORDERED: chlordiazePOXIDE HCL 25 MG CAPSULE ONE (21:24)
[2021-11-14] MEDS ORDERED: ONDANSETRON 4 MG/2 ML VIAL ONE (21:24)
[2021-11-14 21:25] LABS: BASO % 0.5 % (0-2.0); EOS % 0.3 % (0-4.5); HEMATOCRIT 38.7 % (35.4-49); HEMOGLOBIN 13.2 GM/dL (11.7-16.9); LYMPH % 14.1 % (8-40); MCH 31.4 pg (25.7-33.7); MCHC 34.1 g/dl (32.0-35.9); MEAN PLT VOLUME 8.3 fl (7.5-11.1); MONO % 7.3 % (3.8-10.2); NEUT % 77.8 % (42.8-82.8); PLATELET COUNT 199 10^3/uL (134-434); RDW 13.8 % (11.9-15.9); WHITE BLOOD COUNT 9.2 K/mm3 (4.0-10.0)
[2021-11-14 21:42] LABS: CALCIUM 8.5 mg/dL (8.5-10.1)
[2021-11-14 21:43] LABS: ALBUMIN 3.8 g/dl (3.4-5.0); BLOOD UREA NITROGEN 10.4 mg/dL (7-18); MAGNESIUM 1.7 mg/dL (1.8-2.4)
[2021-11-14 21:46] LABS: CREATININE 0.9 mg/dL (0.55-1.3)
[2021-11-14 21:48] LABS: BILIRUBIN,TOTAL 0.6 mg/dL (0.2-1); TOT PROT 7.5 g/dl (6.4-8.2)
[2021-11-14 23:04] LABS: CALCIUM 8.1 mg/dL (8.5-10.1)
[2021-11-14 23:06] LABS: BLOOD UREA NITROGEN 8.7 mg/dL (7-18)
[2021-11-14 23:08] LABS: CREATININE 0.8 mg/dL (0.55-1.3)
[2021-11-14] MEDS ORDERED: MAGNESIUM SULF 50% (8.12 MEQ/2 ML-1 GM VIAL) IVPB ONE (23:40)
[2021-11-14] MEDS ORDERED: MAGNESIUM SULF 50% (8.12 MEQ/2 ML-1 GM VIAL) ONE (23:45)
[2021-11-15] MEDS ORDERED: MELATONIN 5 MG TABLETS PO ONE ×2 (02:06→22:31)
[2021-11-15] MEDS ORDERED: FOLIC ACID INJECTION - 1 MG, THIAMINE HCL 100 MG, MULTIVIT INJECTION ADULT 10 ML in SOD... IVPB ONE (02:09)
[2021-11-15] MEDS ORDERED: TRIMETHOBENZAMIDE HCL 200MG/2ML INJ IM PRN (02:11)
[2021-11-15 02:13] LABS: URINE APPEARANCE CLEAR; URINE BILIRUBIN NEGATIVE (NEGATIVE); URINE COLOR YELLOW; URINE GLUCOSE (UA) TRACE (NEGATIVE); URINE KETONE NEGATIVE (NEGATIVE); URINE LEUK ESTERASE NEGATIVE (NEGATIVE); URINE NITRITE NEGATIVE (NEGATIVE); URINE PROTEIN NEGATIVE (NEGATIVE); URINE UROBILINOGEN 0.2 mg/dL (0.2-1.0)
[2021-11-15] MEDS: SODIUM CHLORIDE 1,000 ML IV SCH ×2 (02:20→23:05)
[2021-11-15 02:21] LABS: METHADONE, UR NEGATIVE (NEGATIVE); OPIATES, URI NEGATIVE (NEGATIVE); PHENCYCLIDINE,URINE NEGATIVE (NEGATIVE); URINE BARBITURATES NEGATIVE (NEGATIVE)
[2021-11-15 02:22] LABS: URINE BENZODIAZEPINES NEGATIVE (NEGATIVE)
[2021-11-15] MEDS ORDERED: LORazepam 1 MG TABLET PO PRN (02:36)
[2021-11-15 03:06] LABS: COCAINE, UR NEGATIVE (NEGATIVE); URINE AMPHETAMINES NEGATIVE (NEGATIVE)
[2021-11-15] MEDS ORDERED: TAMSULOSIN HCL 0.4 MG CAP ONE (07:13)
[2021-11-15] MEDS: TAMSULOSIN HCL 0.4 MG CAP PO SCH (07:43)
[2021-11-15] MEDS: INSULIN SLIDING SCALE (NOVOLOG) 1 VIAL SQ SCH ×3 (08:00→16:47)
[2021-11-15 08:46] LABS: HEMATOCRIT 36.6 % (35.4-49); HEMOGLOBIN 12.6 GM/dL (11.7-16.9); MCHC 34.4 g/dl (32.0-35.9); MEAN CELL VOLUME 93.2 fl (80-96); MEAN PLT VOLUME 7.9 fl (7.5-11.1); PLATELET COUNT 167 10^3/uL (134-434); RBC 3.93 M/mm3 (4.00-5.60); WHITE BLOOD COUNT 3.8 K/mm3 (4.0-10.0)
[2021-11-15] MEDS ORDERED: PANTOPRAZOLE 40 MG TABLET PO ONE (09:05)
[2021-11-15] MEDS ORDERED: ASPIRIN 81 MG CHEWABLE TABLETS ONE (09:06)
[2021-11-15] MEDS ORDERED: LOSARTAN POTASSIUM 50 MG TABLET ONE (09:06)
[2021-11-15] MEDS ORDERED: THIAMINE HCL 100 MG TABLET (FP) ONE (09:06)
[2021-11-15] MEDS ORDERED: FOLIC ACID 1 MG TABLET (FP) ONE (09:06)
[2021-11-15] MEDS ORDERED: ENOXAPARIN NA (PORCINE) 40 MG/0.4 ML DISP.SYRIN SQ ONE (09:06)
[2021-11-15] MEDS ORDERED: ATENOLOL 25 MG TABLET (FP) ONE (09:06)
[2021-11-15 09:07] LABS: CALCIUM 8.4 mg/dL (8.5-10.1)
[2021-11-15 09:08] LABS: ALBUMIN 3.2 g/dl (3.4-5.0); MAGNESIUM 2.6 mg/dL (1.8-2.4)
[2021-11-15 09:11] LABS: CREATININE 0.9 mg/dL (0.55-1.3); PHOSPHOROUS 2.5 mg/dL (2.5-4.9)
[2021-11-15] MEDS: ASPIRIN 81 MG CHEWABLE TABLETS PO SCH (09:11)
[2021-11-15] MEDS: ENOXAPARIN NA (PORCINE) 40 MG/0.4 ML DISP.SYRIN SQ SCH (09:11)
[2021-11-15] MEDS: ATENOLOL 25 MG TABLET (FP) PO SCH (09:11)
[2021-11-15] MEDS: PANTOPRAZOLE 40 MG TABLET PO SCH (09:11)
[2021-11-15] MEDS: FOLIC ACID 1 MG TABLET (FP) PO SCH (09:11)
[2021-11-15] MEDS: LOSARTAN POTASSIUM 50 MG TABLET PO SCH (09:11)
[2021-11-15 09:12] LABS: BILIRUBIN,TOTAL 0.6 mg/dL (0.2-1); TOT PROT 6.6 g/dl (6.4-8.2)
[2021-11-15] MEDS ORDERED: THIAMINE HCL 100 MG TABLET (FP) PO SCH (10:00)
[2021-11-15] MEDS ORDERED: LORazepam 1 MG TABLET ONE ×2 (10:44→16:43)
[2021-11-15] MEDS: LORazepam 2 MG TABLET PO SCH ×2 (10:52→16:47)
[2021-11-15] MEDS ORDERED: THIAMINE HCL 200 MG/2 ML VIAL ONE (13:34)
[2021-11-15] MEDS: THIAMINE HCL 200 MG/2 ML VIAL IM SCH (13:34)
[2021-11-15 22:09] VITALS: BMI 28.3
[2021-11-15] MEDS ORDERED: DOCUSATE SODIUM 100 MG CAPSULE (FP) PO ONE (22:31)
[2021-11-15] MEDS: ATORVASTATIN CA 40 MG TABLET (FP) PO SCH (23:01)
[2021-11-15] MEDS: LORazepam 1 MG TABLET PO SCH (23:01)
[2021-11-16] MEDS: LORazepam 1 MG TABLET PO SCH ×4 (06:01→22:00)
[2021-11-16] MEDS: SODIUM CHLORIDE 1,000 ML IV SCH ×2 (06:04→13:54)
[2021-11-16] MEDS: INSULIN SLIDING SCALE (NOVOLOG) 1 VIAL SQ SCH ×3 (06:07→16:37)
[2021-11-16] MEDS: ASPIRIN 81 MG CHEWABLE TABLETS PO SCH (10:41)
[2021-11-16] MEDS: TAMSULOSIN HCL 0.4 MG CAP PO SCH (10:41)
[2021-11-16] MEDS: THIAMINE HCL 200 MG/2 ML VIAL IM SCH (10:41)
[2021-11-16] MEDS: ENOXAPARIN NA (PORCINE) 40 MG/0.4 ML DISP.SYRIN SQ SCH (10:41)
[2021-11-16] MEDS: PANTOPRAZOLE 40 MG TABLET PO SCH (10:41)
[2021-11-16] MEDS: LOSARTAN POTASSIUM 50 MG TABLET PO SCH (10:41)
[2021-11-16] MEDS: ATENOLOL 25 MG TABLET (FP) PO SCH (10:41)
[2021-11-16] MEDS: FOLIC ACID 1 MG TABLET (FP) PO SCH (10:42)
[2021-11-16] MEDS ORDERED: MAGNESIUM CITRATE 300 ML BOTTLE PO PRN (10:44)
[2021-11-16 12:12] LABS: BASO % 0.5 % (0-2.0); EOS % 2.1 % (0-4.5); HEMATOCRIT 36.9 % (35.4-49); HEMOGLOBIN 12.1 GM/dL (11.7-16.9); LYMPH % 19.3 % (8-40); MCH 30.5 pg (25.7-33.7); MCHC 32.8 g/dl (32.0-35.9); MEAN CELL VOLUME 92.9 fl (80-96); MONO % 8.7 % (3.8-10.2); NEUT % 69.4 % (42.8-82.8); PLATELET COUNT 156 10^3/uL (134-434); RBC 3.97 M/mm3 (4.00-5.60); RDW 13.4 % (11.9-15.9); WHITE BLOOD COUNT 5.2 K/mm3 (4.0-10.0)
[2021-11-16 12:38] LABS: BLOOD UREA NITROGEN 9.6 mg/dL (7-18); CALCIUM 8.5 mg/dL (8.5-10.1); MAGNESIUM 1.9 mg/dL (1.8-2.4)
[2021-11-16 12:42] LABS: CREATININE 0.7 mg/dL (0.55-1.3)
[2021-11-16 12:43] LABS: BILIRUBIN,TOTAL 0.3 mg/dL (0.2-1)
[2021-11-16] MEDS ORDERED: POTASSIUM CHLORIDE TABS 20 MEQ TABLET.ER (FP) PO ONE (12:50)
[2021-11-16] MEDS: POLYETHYLENE GLYCOL (HEALTHYLAX) 3350 17 GM PACKET PO SCH (13:49)
[2021-11-16] MEDS ORDERED: BISACODYL 5 MG TABLET.DR (FP) PO ONE (15:53)
[2021-11-16] MEDS ORDERED: LACTULOSE 20 GM/30 ML UDC (FOR ORAL USE ONLY) PO ONE (15:54)
[2021-11-16] MEDS ORDERED: BISACODYL 10 MG SUPP.RECT PR PRN (16:37)
[2021-11-16] MEDS: ATORVASTATIN CA 40 MG TABLET (FP) PO SCH (21:59)
[2021-11-16] MEDS ORDERED: DOCUSATE SODIUM 100 MG CAPSULE (FP) PO SCH (22:00)
[2021-11-17] MEDS ORDERED: LORazepam 1 MG TABLET PO SCH (05:00)
[2021-11-17] MEDS: INSULIN SLIDING SCALE (NOVOLOG) 1 VIAL SQ SCH ×2 (06:24→11:15)
[2021-11-17 11:07] VITALS: BP 156/97; PULSE 95; RESP 18; TEMP 98.6
[2021-11-17] MEDS: THIAMINE HCL 200 MG/2 ML VIAL IM SCH (11:10)
[2021-11-17] MEDS: ENOXAPARIN NA (PORCINE) 40 MG/0.4 ML DISP.SYRIN SQ SCH (11:10)
[2021-11-17] MEDS: TAMSULOSIN HCL 0.4 MG CAP PO SCH (11:10)
[2021-11-17 11:11] LABS: BASO % 0.2 % (0-2.0); EOS % 2.8 % (0-4.5); HEMOGLOBIN 13.6 GM/dL (11.7-16.9); LYMPH % 24.1 % (8-40); MCH 31.7 pg (25.7-33.7); MEAN PLT VOLUME 8.8 fl (7.5-11.1); MONO % 7.8 % (3.8-10.2); NEUT % 65.1 % (42.8-82.8); PLATELET COUNT 163 10^3/uL (134-434); RDW 13.5 % (11.9-15.9); WHITE BLOOD COUNT 4.9 K/mm3 (4.0-10.0)
[2021-11-17] MEDS: PANTOPRAZOLE 40 MG TABLET PO SCH (11:11)
[2021-11-17] MEDS: ASPIRIN 81 MG CHEWABLE TABLETS PO SCH (11:11)
[2021-11-17] MEDS: ATENOLOL 25 MG TABLET (FP) PO SCH (11:11)
[2021-11-17] MEDS: FOLIC ACID 1 MG TABLET (FP) PO SCH (11:11)
[2021-11-17] MEDS: SODIUM CHLORIDE 1,000 ML IV SCH (11:11)
[2021-11-17] MEDS: POLYETHYLENE GLYCOL (HEALTHYLAX) 3350 17 GM PACKET PO SCH (11:11)
[2021-11-17] MEDS: LOSARTAN POTASSIUM 50 MG TABLET PO SCH (11:11)
[2021-11-17 11:35] LABS: ALBUMIN 3.3 g/dl (3.4-5.0)
[2021-11-17 11:36] LABS: BLOOD UREA NITROGEN 6.6 mg/dL (7-18); CALCIUM 8.6 mg/dL (8.5-10.1); MAGNESIUM 2.1 mg/dL (1.8-2.4)
[2021-11-17 11:40] LABS: BILIRUBIN,TOTAL 0.4 mg/dL (0.2-1); CREATININE 0.8 mg/dL (0.55-1.3); TOT PROT 6.9 g/dl (6.4-8.2)
[2021-11-18] MEDS ORDERED: LORazepam 0.5 MG TABLET PO PRN
[2021-11-18] MEDS ORDERED: LORazepam 0.5 MG TABLET PO SCH (05:00)
[2021-11-19] MEDS ORDERED: LORazepam 0.5 MG TABLET PO ONE (05:00)
== END 2021-11-17 12:46 | disposition home or self-care (01) | DRG 775 ==
LOC: JER 19:19 → JERBED 23:40 → J8W 11-15 21:49
PROVIDERS: ADMIT Internal Medicine; ATTEND Nurse Practitioner Acute Care
DX: F10.230 Alcohol dependence with withdrawal, uncomplicated (principal); E11.65 Type 2 diabetes mellitus with hyperglycemia; E83.42 Hypomagnesemia; E87.8 Other disorders of electrolyte and fluid balance, not elsewhere classified; I10 Essential (primary) hypertension; Z79.84 Long term (current) use of oral hypoglycemic drugs; K29.20 Alcoholic gastritis without bleeding; E86.0 Dehydration; R07.89 Other chest pain; E87.1 Hypo-osmolality and hyponatremia; E78.5 Hyperlipidemia, unspecified; R00.0 Tachycardia, unspecified; K59.00 Constipation, unspecified
CPT/HCPCS: 36415; 71046-TC-FY; 76700-TC; 80048; 80053; 80307; 81003; 82962; 83036; 83690; 83735; 84100; 84484; 85025; 85027; 93005; 93010; 99285-25; C9803-CS; U0003; U0005

== ENCOUNTER 2021-12-13 10:50 | Emergency (ER) | payer OTHER ==
[2021-12-13 11:07] VITALS: TEMP 99.6; BMI 28.0
[2021-12-13] MEDS ORDERED: ACETAMINOPHEN 500 MG TABLET (FP) PO ONE (11:40)
[2021-12-13] MEDS ORDERED: guaiFENesin 200 MG/10 ML 10 ML UNIT-DOSE CUPS PO ONE (11:40)
[2021-12-13] MEDS ORDERED: ACETAMINOPHEN 500 MG TABLET (FP) ONE (11:43)
[2021-12-13] MEDS ORDERED: guaiFENesin/D-METHORPHAN HB 10 ML UNIT-DOSE CUPS ONE (11:46)
[2021-12-13] MEDS ORDERED: SODIUM CHLORIDE 1,000 ML IV STA ×2 (12:35→14:10)
[2021-12-13] MEDS ORDERED: ONDANSETRON *ODT* 4 MG TABLET SL ONE (12:36)
[2021-12-13] MEDS ORDERED: ONDANSETRON *ODT* 4 MG TABLET ONE (12:38)
[2021-12-13 13:46] LABS: BASO % 0.3 % (0-2.0); EOS % 0.6 % (0-4.5); HEMATOCRIT 37.6 % (35.4-49); HEMOGLOBIN 12.6 GM/dL (11.7-16.9); LYMPH % 22.6 % (8-40); MCH 30.5 pg (25.7-33.7); MCHC 33.4 g/dl (32.0-35.9); MEAN CELL VOLUME 91.5 fl (80-96); MEAN PLT VOLUME 9.1 fl (7.5-11.1); MONO % 7.9 % (3.8-10.2); NEUT % 68.6 % (42.8-82.8); PLATELET COUNT 217 10^3/uL (134-434); RBC 4.11 M/mm3 (4.00-5.60); RDW 13.1 % (11.9-15.9); WHITE BLOOD COUNT 6.9 K/mm3 (4.0-10.0)
[2021-12-13 14:02] LABS: URINE APPEARANCE CLEAR; URINE BILIRUBIN NEGATIVE (NEGATIVE); URINE COLOR YELLOW; URINE GLUCOSE (UA) 3+ (NEGATIVE); URINE KETONE 1+ (NEGATIVE); URINE LEUK ESTERASE NEGATIVE (NEGATIVE); URINE NITRITE NEGATIVE (NEGATIVE); URINE PROTEIN NEGATIVE (NEGATIVE); URINE UROBILINOGEN 0.2 mg/dL (0.2-1.0)
[2021-12-13 14:09] LABS: CALCIUM 9.2 mg/dL (8.5-10.1)
[2021-12-13 14:10] LABS: ALBUMIN 3.6 g/dl (3.4-5.0); BLOOD UREA NITROGEN 10.6 mg/dL (7-18)
[2021-12-13 14:13] LABS: CREATININE 0.9 mg/dL (0.55-1.3)
[2021-12-13 14:14] LABS: TOT PROT 7.2 g/dl (6.4-8.2)
[2021-12-13 14:15] LABS: BILIRUBIN,TOTAL 0.5 mg/dL (0.2-1)
[2021-12-13 16:34] VITALS: BP 146/89; PULSE 82; RESP 16
== END 2021-12-13 16:34 | disposition home or self-care (01) ==
LOC: JER 10:50
PROC: 3E0337Z Introduction of Electrolytic and Water Balance Substance into Peripheral Vein, Percutaneous Approach (ICD-10-PCS; principal; 2021-12-13)
PROC: 3E0337Z Introduction of Electrolytic and Water Balance Substance into Peripheral Vein, Percutaneous Approach (ICD-10-PCS; 2021-12-13)
DX: U07.1 COVID-19 (principal)
CPT/HCPCS: 36415; 71045-TC-FY; 80053; 81003; 85025; 99284-25; Q0162

== ENCOUNTER 2022-06-01 16:58 | Emergency (ER) | payer OTHER ==
[2022-06-01 17:16] VITALS: BMI 28.0
[2022-06-01] MEDS ORDERED: LACTATED RINGERS SOLUTION 1000 ML INFUS.BAG IV ONE (21:43)
[2022-06-01] MEDS ORDERED: ACETAMINOPHEN 1000 MG/100 ML BAG IVPB ONE (22:03)
[2022-06-01] MEDS ORDERED: ACETAMINOPHEN INJECTION 100 ML IVPB ONE (22:17)
[2022-06-01 22:24] LABS: URINE APPEARANCE CLEAR; URINE BILIRUBIN NEGATIVE (NEGATIVE); URINE COLOR YELLOW; URINE GLUCOSE (UA) 3+ (NEGATIVE); URINE KETONE 1+ (NEGATIVE); URINE LEUK ESTERASE NEGATIVE (NEGATIVE); URINE NITRITE NEGATIVE (NEGATIVE); URINE PROTEIN NEGATIVE (NEGATIVE); URINE UROBILINOGEN 0.2 mg/dL (0.2-1.0)
[2022-06-01 22:31] LABS: BASO % 0.8 % (0-2.0); EOS % 3.6 % (0-4.5); HEMATOCRIT 35.6 % (35.4-49); HEMOGLOBIN 12.1 GM/dL (11.7-16.9); LYMPH % 38.5 % (8-40); MCH 30.5 pg (25.7-33.7); MEAN CELL VOLUME 89.6 fl (80-96); MEAN PLT VOLUME 8.4 fl (7.5-11.1); MONO % 13.4 % (3.8-10.2); NEUT % 43.7 % (42.8-82.8); PLATELET COUNT 191 10^3/uL (134-434); RBC 3.97 M/mm3 (4.00-5.60); RDW 15.5 % (11.9-15.9); WHITE BLOOD COUNT 5.8 K/mm3 (4.0-10.0)
[2022-06-01 22:38] LABS: INR 0.98 (0.83-1.09); PROTHROMBIN TIME (PATIENT) 11.4 SEC (9.7-13.0)
[2022-06-01 22:40] LABS: ACTIVATED PTT 33.2 SECONDS (25.2-36.5)
[2022-06-01 22:58] LABS: ALBUMIN 3.6 g/dl (3.4-5.0); CALCIUM 9.1 mg/dL (8.5-10.1)
[2022-06-01 23:01] LABS: CREATININE 0.9 mg/dL (0.55-1.3)
[2022-06-01 23:03] LABS: BILIRUBIN,TOTAL 0.7 mg/dL (0.2-1); TOT PROT 6.9 g/dl (6.4-8.2)
[2022-06-01] MEDS ORDERED: KETOROLAC TROMETHAMINE 15 MG/ML VIAL IVPUSH ONE (23:03)
[2022-06-01] MEDS ORDERED: KETOROLAC TROMETHAMINE 15 MG/ML VIAL ONE (23:12)
[2022-06-02 01:19] VITALS: BP 154/93; PULSE 60; RESP 17; TEMP 98.6
== END 2022-06-02 02:41 | disposition home or self-care (01) ==
LOC: JER 16:58
PROC: 3E0333Z Introduction of Anti-inflammatory into Peripheral Vein, Percutaneous Approach (ICD-10-PCS; principal; 2022-06-01)
PROC: 3E033NZ Introduction of Analgesics, Hypnotics, Sedatives into Peripheral Vein, Percutaneous Approach (ICD-10-PCS; 2022-06-01)
DX: M51.27 Other intervertebral disc displacement, lumbosacral region (principal); E11.9 Type 2 diabetes mellitus without complications
CPT/HCPCS: 0241U-QW; 36415; 74176-TC; 80053; 81003; 83690; 84484; 85025; 85610; 85730; 86850; 86900; 86901; 87086; 93005; 93010; 99285-25

== ENCOUNTER 2022-06-23 04:23 | Day surgery (SDC) | payer OTHER ==
[2022-06-20 14:30] VITALS: BMI 26.2
[2022-06-23 11:26] VITALS: TEMP 98
[2022-06-23 14:54] VITALS: BP 130/68; PULSE 69; RESP 14
== END 2022-06-23 11:10 | disposition home or self-care (01) ==
LOC: JASU-ENDO 04:23
PROVIDERS: ATTEND Internal Medicine Gastroenterology
PROC: 0DJD8ZZ Inspection of Lower Intestinal Tract, Via Natural or Artificial Opening Endoscopic (ICD-10-PCS; principal; 2022-06-23 08:30)
DX: Z12.11 Encounter for screening for malignant neoplasm of colon (principal); K57.30 Diverticulosis of large intestine without perforation or abscess without bleeding; I10 Essential (primary) hypertension; E11.9 Type 2 diabetes mellitus without complications; Z79.84 Long term (current) use of oral hypoglycemic drugs; Z80.0 Family history of malignant neoplasm of digestive organs
CPT/HCPCS: 82962

== ENCOUNTER 2023-04-22 19:16 | Observation (INO) | payer OTHER ==
[2023-04-22] MEDS ORDERED: ONDANSETRON 4 MG/2 ML VIAL ONE (20:30)
[2023-04-22] MEDS ORDERED: FAMOTIDINE 20 MG/50 ML IVPB 20 MG/50 ML MG IVPB ONE (20:30)
[2023-04-22] MEDS ORDERED: ACETAMINOPHEN INJECTION 100 ML IVPB ONE (20:30)
[2023-04-22 20:36] LABS: PH,URINE 6.5 (5.0-8.0); URINE APPEARANCE CLEAR; URINE BILIRUBIN NEGATIVE (NEGATIVE); URINE COLOR YELLOW; URINE GLUCOSE (UA) 3+ (NEGATIVE); URINE KETONE 1+ (NEGATIVE); URINE LEUK ESTERASE NEGATIVE (NEGATIVE); URINE NITRITE NEGATIVE (NEGATIVE); URINE PROTEIN NEGATIVE (NEGATIVE); URINE UROBILINOGEN 0.2 mg/dL (0.2-1.0)
[2023-04-22 20:37] LABS: BASO % 0.4 % (0-2.0); EOS % 0.8 % (0-4.5); HEMATOCRIT 37.4 % (35.4-49); HEMOGLOBIN 12.8 GM/dL (11.7-16.9); LYMPH % 20.8 % (8-40); MCHC 34.1 g/dl (32.0-35.9); MEAN CELL VOLUME 93.7 fl (80-96); MEAN PLT VOLUME 8.2 fl (7.5-11.1); MONO % 9.1 % (3.8-10.2); NEUT % 68.9 % (42.8-82.8); PLATELET COUNT 169 10^3/uL (134-434); RBC 3.99 M/mm3 (4.00-5.60); RDW 13.6 % (11.9-15.9)
[2023-04-22] MEDS: LACTATED RINGERS SOLUTION 1000 ML INFUS.BAG IV ONE (20:39)
[2023-04-22] MEDS: ONDANSETRON 4 MG/2 ML VIAL IVPUSH ONE (20:40)
[2023-04-22] MEDS: FAMOTIDINE 20 MG/50 ML IVPB 20 MG/50 ML MG IVPB ONE (20:40)
[2023-04-22] MEDS: ACETAMINOPHEN 1000 MG/100 ML BAG IVPB ONE (20:40)
[2023-04-22 20:55] LABS: POTASSIUM 3.7 mmol/L (3.5-5.1)
[2023-04-22 20:57] LABS: ALBUMIN 3.8 g/dl (3.4-5.0); BLOOD UREA NITROGEN 9.1 mg/dL (7-18); CALCIUM 8.5 mg/dL (8.5-10.1); MAGNESIUM 1.7 mg/dL (1.8-2.4)
[2023-04-22 21:01] LABS: BILIRUBIN,TOTAL 0.7 mg/dL (0.2-1); CREATININE 0.9 mg/dL (0.55-1.3); TOT PROT 7.3 g/dl (6.4-8.2)
[2023-04-22 21:25] LABS: LACTIC ACID 3.2 mmol/L (0.4-2.0)
[2023-04-22] MEDS ORDERED: KETOROLAC TROMETHAMINE 15 MG/ML VIAL ONE (22:13)
[2023-04-22] MEDS: KETOROLAC TROMETHAMINE 15 MG/ML VIAL IM ONE (22:16)
[2023-04-22] MEDS: SODIUM CHLORIDE 0.9% 500 ML INFUS.BAG IV ONE (23:17)
[2023-04-23] MEDS ORDERED: ACETAMINOPHEN INJECTION 100 ML IVPB ONE (03:38)
[2023-04-23] MEDS: MAGNESIUM OXIDE 400 MG TABLET (FP) PO ONE (03:49)
[2023-04-23] MEDS: ACETAMINOPHEN 1000 MG/100 ML BAG IVPB ONE (03:50)
[2023-04-23] MEDS: MAGNESIUM OXIDE 400 MG TABLET (FP) PO SCH (05:36)
[2023-04-23 05:52] VITALS: BMI 26.7
[2023-04-23] MEDS: INSULIN ASPART SLIDING SCALE (NOVOLOG) 1 VIAL SQ SCH (06:28)
[2023-04-23 08:50] LABS: BASO % 0.4 % (0-2.0); EOS % 2.1 % (0-4.5); HEMATOCRIT 33.5 % (35.4-49); HEMOGLOBIN 11.6 GM/dL (11.7-16.9); LYMPH % 21.8 % (8-40); MCH 32.3 pg (25.7-33.7); MCHC 34.6 g/dl (32.0-35.9); MEAN CELL VOLUME 93.4 fl (80-96); MEAN PLT VOLUME 8.5 fl (7.5-11.1); MONO % 10.4 % (3.8-10.2); NEUT % 65.3 % (42.8-82.8); PLATELET COUNT 128 10^3/uL (134-434); RBC 3.58 M/mm3 (4.00-5.60); RDW 13.7 % (11.9-15.9); WHITE BLOOD COUNT 4.2 K/mm3 (4.0-10.0)
[2023-04-23 08:59] LABS: POTASSIUM 3.4 mmol/L (3.5-5.1)
[2023-04-23 09:09] LABS: CALCIUM 7.8 mg/dL (8.5-10.1)
[2023-04-23 09:10] LABS: ALBUMIN 3.1 g/dl (3.4-5.0); BLOOD UREA NITROGEN 7.1 mg/dL (7-18); MAGNESIUM 1.8 mg/dL (1.8-2.4)
[2023-04-23 09:12] LABS: CREATININE 0.7 mg/dL (0.55-1.3); PHOSPHOROUS 2.7 mg/dL (2.5-4.9)
[2023-04-23 09:13] LABS: BILIRUBIN,TOTAL 0.7 mg/dL (0.2-1)
[2023-04-23] MEDS: LOSARTAN POTASSIUM 50 MG TABLET PO SCH (09:21)
[2023-04-23] MEDS: ENOXAPARIN NA (PORCINE) 40 MG/0.4 ML DISP.SYRIN SQ SCH (09:21)
[2023-04-23] MEDS: THIAMINE HCL 200 MG/2 ML VIAL IVPB SCH (09:21)
[2023-04-23] MEDS: FOLIC ACID 1 MG TABLET (FP) PO SCH (09:22)
[2023-04-23] MEDS: TAMSULOSIN HCL 0.4 MG CAP PO SCH (09:22)
[2023-04-23] MEDS: ATENOLOL 25 MG TABLET (FP) PO SCH (09:22)
[2023-04-23] MEDS: ASPIRIN 81 MG CHEWABLE TABLETS PO SCH (09:22)
[2023-04-23] MEDS: POTASSIUM CHLORIDE ORAL LIQUID 20 MEQ/15 ML PO ONE (11:35)
[2023-04-23 13:46] VITALS: RESP 18
[2023-04-23] MEDS: ACETAMINOPHEN 325 MG TABLET (FP) PO PRN (16:45)
[2023-04-23] MEDS: MELATONIN 5 MG TABLETS PO ONE (21:27)
[2023-04-23] MEDS: ATORVASTATIN CA 10 MG TABLET (FP) PO SCH (21:27)
[2023-04-24 08:52] LABS: BASO % 0.5 % (0-2.0); EOS % 3.4 % (0-4.5); HEMATOCRIT 37.8 % (35.4-49); HEMOGLOBIN 12.5 GM/dL (11.7-16.9); MCH 31.6 pg (25.7-33.7); MCHC 33.1 g/dl (32.0-35.9); MEAN CELL VOLUME 95.5 fl (80-96); MEAN PLT VOLUME 8.1 fl (7.5-11.1); MONO % 11.9 % (3.8-10.2); NEUT % 55.2 % (42.8-82.8); PLATELET COUNT 159 10^3/uL (134-434); RBC 3.96 M/mm3 (4.00-5.60); RDW 13.6 % (11.9-15.9); WHITE BLOOD COUNT 4.1 K/mm3 (4.0-10.0)
[2023-04-24 09:15] LABS: POTASSIUM 4.2 mmol/L (3.5-5.1)
[2023-04-24 09:21] LABS: BLOOD UREA NITROGEN 4.1 mg/dL (7-18)
[2023-04-24 09:22] LABS: MAGNESIUM 2.3 mg/dL (1.8-2.4)
[2023-04-24 09:25] LABS: CREATININE 0.7 mg/dL (0.55-1.3)
[2023-04-24] MEDS: PANTOPRAZOLE 20 MG TABLET PO SCH (09:30)
[2023-04-24] MEDS: IBUPROFEN 400 MG TABLET (FP) PO PRN (09:30)
[2023-04-24 09:37] LABS: CALCIUM 9.3 mg/dL (8.5-10.1)
[2023-04-24] MEDS ORDERED: PANTOPRAZOLE 40 MG TABLET PO SCH (10:43)
[2023-04-24 14:17] VITALS: BP 107/70; PULSE 18; TEMP 98.1
== END 2023-04-24 15:07 | disposition home or self-care (01) ==
LOC: JER 19:16 → JERBED 04-23 00:46 → UNDOADMOB 04-23 00:46 → INTOOBSV 04-23 00:46 → JERBED 04-23 03:04 → J6S 04-23 05:11 → JERBED 04-23 05:11
PROVIDERS: ADMIT Internal Medicine; ATTEND Nurse Practitioner
PROC: 3E033NZ Introduction of Analgesics, Hypnotics, Sedatives into Peripheral Vein, Percutaneous Approach (ICD-10-PCS; principal; 2023-04-23)
PROC: 3E033GC Introduction of Other Therapeutic Substance into Peripheral Vein, Percutaneous Approach (ICD-10-PCS; 2023-04-23)
PROC: 3E0233Z Introduction of Anti-inflammatory into Muscle, Percutaneous Approach (ICD-10-PCS; 2023-04-23)
PROC: 3E0337Z Introduction of Electrolytic and Water Balance Substance into Peripheral Vein, Percutaneous Approach (ICD-10-PCS; 2023-04-23)
DX: K52.9 Noninfective gastroenteritis and colitis, unspecified (principal); F10.99 Alcohol use, unspecified with unspecified alcohol-induced disorder; K57.92 Diverticulitis of intestine, part unspecified, without perforation or abscess without bleeding; E87.1 Hypo-osmolality and hyponatremia; E83.42 Hypomagnesemia; E78.00 Pure hypercholesterolemia, unspecified; K92.9 Disease of digestive system, unspecified; E11.9 Type 2 diabetes mellitus without complications; Z96.643 Presence of artificial hip joint, bilateral; M54.9 Dorsalgia, unspecified; I10 Essential (primary) hypertension; E78.5 Hyperlipidemia, unspecified
CPT/HCPCS: 0241U-QW; 36415; 71046-TC-FY; 74177-TC; 80048; 80053; 81003; 82962; 83605; 83690; 83735; 84100; 84443; 84484; 85025; 87086; 96365; 96372; 96375; 96376; 99285-25; G0378; J0131